=== PATIENT | female | born 1975 | race Caucasian/White ===

== ENCOUNTER 2021-01-12 14:29 | Outpatient (CLI) | payer OTHER, SELFPAY ==
--- NOTE | ~2021-01-12 | MM_ITS ---
EXAMINATION: MM screening [facility] w marcel HISTORY: Screening mammogram TECHNIQUE: Craniocaudal and mediolateral oblique 3-D tomosynthesis images were obtained and synthetic 2-D images were generated. CAD analysis was submitted and interpreted. COMPARISON: 12/28/2016 BREAST PARENCHYMAL COMPOSITION: There are scattered areas of fibroglandular density. FINDINGS: There is no evidence of suspicious mass, calcification, or architectural distortion to sugg est malignancy in either breast. There has been no suspicious interval change. IMPRESSION: 1. No mammographic evidence of malignancy. 2. Recommend routine screening mammography in one year. BI-RADS Category 1: Negative Reviewed, dictated and finalized at location A.
== END 2021-01-12 14:30 | disposition home or self-care (01) ==
PROVIDERS: PCP Family Medicine; Visit Provider Family Medicine
DX: Z12.31 Encounter for screening mammogram for malignant neoplasm of breast (principal)
CPT/HCPCS: 77063; 77067

== ENCOUNTER → 2022-04-04 13:38 | Outpatient (CLI) | payer OTHER, SELFPAY ==
--- NOTE | ~2022-04-04 | MM_ITS ---
EXAMINATION: MM screening [facility] w marcel HISTORY: Screening TECHNIQUE: Craniocaudal and mediolateral oblique 3-D tomosynthesis images were obtained and synthetic 2-D images were generated. CAD analysis was submitted and interpreted. COMPARISON: Comparison to multiple prior studies sequentially, with oldest reviewed study dated 09/2016. BREAST PARENCHYMAL COMPOSITION: There are scattered areas of fibroglandular density. FINDINGS: There is no evidence of suspicious mass, calcification, or architectural distortion to sugg est malignancy in either breast. There has been no suspicious interval change. IMPRESSION: 1. No mammographic evidence of malignancy. 2. Recommend routine screening mammography in one year. 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
== END ==
PROVIDERS: PCP Family Medicine; Visit Provider Nurse Practitioner
DX: Z12.31 Encounter for screening mammogram for malignant neoplasm of breast (principal)
CPT/HCPCS: 77063; 77067

== ENCOUNTER 2023-03-13 16:24 | Outpatient (CLI) | payer OTHER, SELFPAY ==
--- NOTE | ~2023-03-13 | US_ITS ---
EXAMINATION: US thyroid DATE: 03/13/2023 19:56 INDICATION: Other specified abnormal findings of blood chemistry. TECHNIQUE: Multiple ultrasound images of the thyroid were obtained. COMPARISON: None. FINDINGS: The right thyroid lobe measures 3.4 x 0.7 x 0.9 cm. The left thyroid lobe measures 4.2 x 0.8 x 1.3 c m. The thyroid demonstrates heterogeneous echogenicity. Vascularity is normal. No discrete nodule. IMPRESSION: 1. Heterogeneous thyroid, likely chronic lymphocytic (Lenore) thyroiditis. Reviewed, dictated and finalized at location E. 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
== END 2023-03-13 16:25 | disposition home or self-care (01) ==
PROVIDERS: PCP Family Medicine; Visit Provider Nurse Practitioner
DX: R79.89 Other specified abnormal findings of blood chemistry (principal)
CPT/HCPCS: 76536

== ENCOUNTER 2023-08-09 00:40 | Day surgery (SDC) | payer OTHER, SELFPAY ==
[2023-07-25 12:53] VITALS: BMI 47.9
[2023-08-09 06:16] VITALS: BP 149/94; PULSE 74; RESP 18; TEMP 35.9; O2SAT 100; BMI 44.6
[2023-08-09] MEDS: LACTATED RINGERS 1,000 ML 150 ML IV CONT (06:20)
--- NOTE | 2023-08-09 07:23 | PM.HPGS ---
History of Present Illness History of Present Illness Consent: Risks, benefits, and alternatives have been discussed and questions answered. Patient agrees to proceed with procedure. Chief complaint: neoplasm screening Narrative: Kristy Quintana is a 47 year old female here for first screening colonoscopy Review of Systems Review of Systems: All systems reviewed & are unremarkable except as noted in HPI and below PMFSH Surgical History Surgical History H/O neck surgery (2012) Family History Family History Father Hypertension Family history of elevated blood lipids Family history of kidney disease Family history of type 2 diabetes mellitus Mother Hypertension Asthma Family history of elevated blood lipids Family history of hypothyroidism Grandparent Hypertension Family history of malignant neoplasm Social History Social History Smoking status: Never smoker Alcohol intake: never Substance use: never Substance use type: does not use Lack of Transportation: No Lack of Food: Never True Current Housing: I Have Housing Concerned About Future Housing: No Difficulty Paying Gas/Electric Bills: No Currently Unemployed: No Education: High School Diploma/GED Difficulty w/ Childcare or Family Care: No Living arrangements: with family Gender identity (if verbalized by the patient): Female Spiritual care concerns: No Agree to blood products: Yes Meds Home Medications and Allergies Home Medications Medication Instructions Recorded Confirmed Type ergocalciferol (vitamin D2) 1,250 1,250 mcg PO WEEKLY #12 caps 10/04/22 08/09/23 Rx mcg (50,000 unit) capsule (Vitamin D2) sumatriptan succinate 50 mg tablet 50 mg PO Q2-4H PRN migraine 11/17/22 08/09/23 Rx (Imitrex) headache #9 tabs atorvastatin 10 mg tablet 10 mg PO DAILY #90 tabs 02/07/23 08/09/23 Rx hydrochlorothiazide 25 mg tablet 12.5 mg PO DAILY #90 tabs 02/07/23 08/09/23 Rx levothyroxine 200 mcg tablet 200 mcg PO DAILY #90 tabs 02/07/23 08/09/23 Rx (Synthroid) lisinopril 20 mg tablet 20 mg PO DAILY #90 tabs 02/07/23 08/09/23 Rx trazodone 50 mg tablet 50 mg PO QHS PRN insomnia #30 tabs 06/06/23 08/09/23 Rx levothyroxine 75 mcg tablet 75 mcg PO DAILY #90 tabs 07/17/23 08/09/23 Rx (Synthroid) Allergies Allergy/AdvReac Type Severity Reaction Status Date / Time No Known Allergies Allergy Mild Verified 08/09/23 06:15 Vital Signs Vital Signs - 24 hr 08/09/23 06:16 Temperature 96.7 F L Pulse Rate 74 Respiratory Rate 18 Blood Pressure 149/94 H Pulse Oximetry 100 Oxygen Delivery Room Air Exam Const: General: comfortable and no acute distress HENMT: Face/Nose/Sinus: Normal nares present Eyes: General: appearance normal, both eyes and all related structures Neck: Neck: no JVD Resp: Auscultation: clear to auscultation bilaterally Cardio: Rate: regular rate Rhythm: regular rhythm GI: Inspection: non-distended GI Palp: Yes Soft to palpation Skin: General skin exam: normal color Neuro: General: gait normal Speech: normal speech Extrem: General: normal to inspection Psych: Mental Status: mental status grossly normal Assessment and Plan Assessment and plan (1) Screening for colon cancer: Code(s): Z12.11 - Encounter for screening for malignant neoplasm of colon Status: Acute Assessment and Plan: colonoscopy
--- NOTE | 2023-08-09 07:25 | WPDANESEPPF ---
Anes - Initial Pre Proc Eval Procedure: Operation Date: 08/09/23 07:30 Proposed Procedures p Screening Colonoscopy - Kayden Boone MD Date/Time: 08/09/23 07:25 Surgeon: Kayden Boone MD Pre Op Diagnosis: neoplasm screening Patient Data Age: 47 Gender: F Height: 1.73 m Weight: 133.1 kg Last Vital Signs Temp 96.7 F L 08/09/23 06:16 Pulse 74 08/09/23 06:16 Resp 18 08/09/23 06:16 BP 149/94 H 08/09/23 06:16 Pulse Ox 100 08/09/23 06:16 O2 Del Method Room Air 08/09/23 06:16 Allergies Allergy/AdvReac Type Severity Reaction Status Date / Time No Known Allergies Allergy Mild Verified 08/09/23 06:15 Home Medications Medication Instructions Recorded Confirmed Type ergocalciferol (vitamin D2) 1,250 1,250 mcg PO WEEKLY #12 caps 10/04/22 08/09/23 Rx mcg (50,000 unit) capsule (Vitamin D2) sumatriptan succinate 50 mg tablet 50 mg PO Q2-4H PRN migraine 11/17/22 08/09/23 Rx (Imitrex) headache #9 tabs atorvastatin 10 mg tablet 10 mg PO DAILY #90 tabs 02/07/23 08/09/23 Rx hydrochlorothiazide 25 mg tablet 12.5 mg PO DAILY #90 tabs 02/07/23 08/09/23 Rx levothyroxine 200 mcg tablet 200 mcg PO DAILY #90 tabs 02/07/23 08/09/23 Rx (Synthroid) lisinopril 20 mg tablet 20 mg PO DAILY #90 tabs 02/07/23 08/09/23 Rx trazodone 50 mg tablet 50 mg PO QHS PRN insomnia #30 tabs 06/06/23 08/09/23 Rx levothyroxine 75 mcg tablet 75 mcg PO DAILY #90 tabs 07/17/23 08/09/23 Rx (Synthroid) Patient hx anesthesia problems: none Family hx anesthesia problems: none Results Review: All pre-operative results and documents have been reviewed as part of the pre-operative evaluation. [facility] Surgical History Surgical History H/O neck surgery (2012) Family History Family History Father Hypertension Family history of elevated blood lipids Family history of kidney disease Family history of type 2 diabetes mellitus Mother Hypertension Asthma Family history of elevated blood lipids Family history of hypothyroidism Grandparent Hypertension Family history of malignant neoplasm Social History Social History Smoking status: Never smoker Alcohol intake: never Substance use: never Substance use type: does not use Lack of Transportation: No Lack of Food: Never True Current Housing: I Have Housing Concerned About Future Housing: No Difficulty Paying Gas/Electric Bills: No Currently Unemployed: No Education: High School Diploma/GED Difficulty w/ Childcare or Family Care: No Living arrangements: with family Gender identity (if verbalized by the patient): Female Spiritual care concerns: No Agree to blood products: Yes Anes - Eval Final PreProcedure Day of Procedure 08/09/23 07:25 Patient weight: morbidly obese Heart: regular rate and rhythm Lungs: clear to auscultation Airway: Mallampati scale class III Neurological: alert and oriented Last oral intake: >/= 8 hours ASA classification: III Emergent: no Anesthetic plan: proceed Anesthesia type and monitoring: general GIVS and standard monitoring Results Review: All pre-operative results and documents have been reviewed as part of the pre-operative evaluation. Informed Consent: The patient's anesthetic plan and its attendant risks and benefits were discussed with the patient/family/POA. Questions were solicited and answers provided to the satisfaction of the patient/family/POA.
[2023-08-09 07:44] VITALS: BP 136/64; PULSE 66; RESP 20; O2SAT 98
[2023-08-09 07:54] VITALS: BP 144/81; PULSE 63; RESP 19; O2SAT 100
[2023-08-09 08:04] VITALS: BP 127/78; PULSE 65; RESP 23; O2SAT 100
== END 2023-08-09 08:18 | disposition home or self-care (01) ==
PROVIDERS: PCP Family Medicine; Visit Provider Internal Medicine Gastroenterology
PROC: 0DJD8ZZ Inspection of Lower Intestinal Tract, Via Natural or Artificial Opening Endoscopic (ICD-10-PCS; CPT 45378; principal; 2023-08-09 07:30)
DX: Z12.11 Encounter for screening for malignant neoplasm of colon (principal); D12.3 Benign neoplasm of transverse colon; K64.8 Other hemorrhoids; E66.01 Morbid (severe) obesity due to excess calories; Z68.41 Body mass index [BMI] 40.0-44.9, adult
CPT/HCPCS: 45385; 88305; J2704; J7120

== ENCOUNTER 2024-10-08 12:24 | Outpatient (CLI) | payer OTHER, SELFPAY ==
--- NOTE | ~2024-10-08 | XR_ITS ---
Left Knee Technique: AP, lateral, and sunrise views were obtained. Clinical History: Pain Findings: No fracture or dislocation is seen. There is moderate to advanced degenerative change of th e lateral compartment. There is minimal degenerative change of the patellofemoral compartment. Soft t issues are unremarkable. No joint effusion is seen. Impression: Moderate to advanced lateral compartment degenerative change. Minimal degenerative change of the patellofemoral compartment. Reviewed, dictated and finalized at location M. Impression: Moderate to advanced lateral compartment degenerative change. Minimal degenerative change of the patellofemoral compartment.
== END 2024-10-08 12:25 | disposition home or self-care (01) ==
PROVIDERS: PCP Family Medicine; Visit Provider Nurse Practitioner
DX: M25.561 Pain in right knee (principal); M17.12 Unilateral primary osteoarthritis, left knee
CPT/HCPCS: 73562